=== PATIENT | male | born 1985 | race African-American/Black ===

== ENCOUNTER 2020-02-02 09:40 | Emergency (ER) | payer SELFPAY ==
--- NOTE | ~2020-02-02 | XR_ITS ---
EXAMINATION: XR soft tissue neck DATE: 02/02/2020 10:32 INDICATION: Lump in throat. TECHNIQUE: 2 views of the neck soft tissues were obtained. COMPARISON: None. FINDINGS: The adenoids, epiglottis, prevertebral soft tissues, and airway are normal. There is enlarg ement of the palatine tonsils. No radiopaque foreign body. IMPRESSION: 1. Enlargement of the palatine tonsils. Reviewed, dictated and finalized at location A.
[2020-02-02 09:58] VITALS: BP 156/103; PULSE 74; RESP 16; TEMP 36.8; O2SAT 100
--- NOTE | 2020-02-02 10:07 | ED.GENADULT ---
HPI - General Adult General Chief complaint: Unspecified Stated complaint: Feels like lump in throat Time Seen by Provider: 02/02/20 10:07 Source: patient and RN notes reviewed History of Present Illness HPI narrative: Patient is a 34-year-old male that presents the urgent care with complaints of feeling that there is a lump in his throat . Patient states he does have a history of anxiety as a child and is recently been under some stress and laid off from his job. Patient states his hours have been drastically cut. Patient does not currently take anything for anxiety. States that he was seen in the ER not too long ago and was placed on hypertension medication however he quit taking it because his blood pressure had been normal . Patient is unsure of what the medication was. States that the lump in the throat has been ongoing for approximately 2 to 3 days. Patient states he is used Tums and Pepcid due to his history of acid reflux. States that when he burps it gets better for a little bit . Patient denies any shortness of breath or difficulty breathing. Patient has been eating and drinking normally without any issues of swallowing. Patient does not appear to be in any acute distress at this time. Patient aware of the plan of care. Related Data Allergies Allergy/AdvReac Type Severity Reaction Status Date / Time No Known Allergies Allergy Verified 02/02/20 10:08 Review of Systems Review of Systems: Narrative: CONSTITUTIONAL: Denies fever, chills, or sweats. EYES: Denies visual changes, redness, or discharge. ENT: Reports of feeling there is a lump in the throat and a mild sore throat CARDIOVASCULAR: Denies chest pain, palpitations, or edema. RESPIRATORY: Denies cough or dyspnea. GASTROINTESTINAL: Denies abdominal pain, nausea, vomiting, or diarrhea. Reports of acid reflux GENITOURINARY: Denies dysuria or hematuria. SKIN: Denies rash or itching. MUSCULOSKELETAL: Denies back pain, joint pain, or myalgia. NEUROLOGIC: Denies headache, numbness, or weakness. All other systems reviewed are negative, except as documented in HPI. [facility] Social History Social History Gender identity (if verbalized by the patient): Male Comments At the time of my signature, I reviewed and agree with the nursing past medical, surgical, social, and family history. There is no relevant family history pertinent to the patient complaint. Exam Narrative: Exam Narrative: GENERAL: This is a well-nourished, well-developed patient, in no apparent distress. HEAD: normocephalic, atraumatic. EYES: PERRL. Sclera clear/white. Vision is grossly intact. EARS: External ears normal NOSE: External nose normal with no obvious nasal discharge, nares without redness, no rhinorrhea. THROAT: Mucous membranes moist, posterior pharynx clear. Mild erythema noted posterior oropharynx without any notable foreign body or airway obstruction. NECK: Neck supple, non-tender without lymphadenopathy CARDIOVASCULAR: Regular rate and rhythm without murmurs, gallops, or rubs. RESPIRATORY: Clear to auscultation. Breath sounds equal bilaterally. No wheezes, rales, or rhonchi. SKIN: warm, intact with no suspicious lesions or rash, good texture and turgor. NEURO: awake, alert, and oriented to person, place and time. There were no obvious focal neurologic abnormalities. EXTREMITIES: No clubbing, cyanosis, or edema. Course Vital Signs Vital signs: Vital Signs Temperature 98.3 F 02/02/20 09:58 Pulse Rate 74 02/02/20 09:58 Respiratory Rate 16 02/02/20 09:58 Blood Pressure 156/103 H 02/02/20 09:58 Pulse Oximetry 100 02/02/20 09:58 Temperature 98.3 F 02/02/20 09:58 Pulse Rate 74 02/02/20 09:58 Respiratory Rate 16 02/02/20 09:58 Blood Pressure 138/97 H 02/02/20 10:56 Pulse Oximetry 100 02/02/20 09:58 Reviewed?patient is informed that they may have pre-hypertension or hypertension based on a blood pressure reading in the department. I recommend the pa
[2020-02-02 10:56] VITALS: BP 138/97
== END 2020-02-02 10:52 | disposition home or self-care (01) ==
PROVIDERS: Emergency Provider Nurse Practitioner Family
DX: J35.1 Hypertrophy of tonsils (principal); I10 Essential (primary) hypertension; K21.9 Gastro-esophageal reflux disease without esophagitis
CPT/HCPCS: 70360; 87081; 87880; 99203; G0463